=== PATIENT | male | born 1960 | race Caucasian/White ===

== ENCOUNTER 2019-10-11 08:28 | Inpatient (IN) | payer MEDICAID ==
[~2019-10-11 08:28] MED LIST: Doxycycline 200 MG in Sodium Chloride 0.9% 250 ML IV ONE; Ketamine 50 MG in Sodium Chloride 0.9% 49.5 ML IV SCH; Ketamine 500 MG/5 ML MDV IV SCH
[2019-10-11] MEDS ORDERED: Gabapentin 300 MG Cap PO ONE (08:45)
[2019-10-11] MEDS ORDERED: Acetaminophen 500 MG Tab PO ONE (08:45)
[2019-10-11] MEDS ORDERED: Celecoxib 200 MG Cap PO ONE (08:45)
[2019-10-11] MEDS ORDERED: Scopolamine 1.5 MG Transdermal Patch TRDERM SCH (09:00)
[2019-10-11] MEDS ORDERED: Dextrose 5%-Lactated Ringers 1,000 ML IV SCH (09:45)
[2019-10-11] MEDS ORDERED: Rocuronium 50 MG/5 ML Vial ONE (10:00)
[2019-10-11] MEDS ORDERED: Ondansetron 4 MG/2 ML SDV ONE (10:00)
[2019-10-11] MEDS ORDERED: Dexamethasone 4 MG/ML SDV ONE (10:00)
[2019-10-11] MEDS ORDERED: Succinylcholine 200 MG/10 ML MDV ONE (10:00)
[2019-10-11] MEDS ORDERED: Neostigmine Methylsulfate 1 MG/ML 5 ML Syringe ONE (10:00)
[2019-10-11] MEDS ORDERED: Glycopyrrolate 0.2 MG/ML 5 ML MDV ONE (10:00)
[2019-10-11] MEDS ORDERED: Propofol 200 MG/20 ML SDV ONE (10:00)
[2019-10-11] MEDS ORDERED: fentaNYL 250 MCG/5 ML SDV ONE ×2 (10:00→11:16)
[2019-10-11] MEDS ORDERED: Lactated Ringers 1,000 ML ONE (10:08)
[2019-10-11] MEDS ORDERED: Doxycycline 100 MG Vial ONE (10:49)
[2019-10-11] MEDS ORDERED: Meropenem 500 MG SDV ONE (12:12)
[2019-10-11] MEDS ORDERED: hydrOXYzine HCL 100 MG/2 ML SDV IM ONE (13:28)
[2019-10-11] MEDS ORDERED: fentaNYL 100 MCG/2 ML SDV IVPUSH ONE (13:47)
[2019-10-11] MEDS: Meropenem 500 MG in Sodium Chloride 0.9% 50 ML IV SCH ×2 (14:26→20:09)
[2019-10-11] MEDS ORDERED: Calcium Gluconate 10% 1 GM/10 ML SDV IVPUSH PRN (14:32)
[2019-10-11] MEDS ORDERED: Labetalol 20 MG/4 ML Syringe IVPUSH PRN (14:32)
[2019-10-11] MEDS ORDERED: Metoclopramide 10 MG/2 ML SDV IVPUSH PRN (14:32)
[2019-10-11] MEDS ORDERED: HYDROmorphone 1 MG/ML Syringe IV PRN (14:32)
[2019-10-11] MEDS ORDERED: diphenhydrAMINE 50 MG/ML SDV IVPUSH PRN (14:32)
[2019-10-11] MEDS ORDERED: hydrOXYzine HCL 100 MG/2 ML SDV IM PRN (14:32)
[2019-10-11] MEDS ORDERED: Ondansetron 4 MG/2 ML SDV IVPUSH PRN (14:32)
[2019-10-11] MEDS ORDERED: Acetaminophen 500 MG Tab PO PRN (14:32)
[2019-10-11] MEDS ORDERED: HYDROmorphone 0.5 MG/0.5 ML Syringe IVPUSH PRN (14:32)
[2019-10-11] MEDS ORDERED: Cyclobenzaprine 10 MG Tab PO PRN (14:32)
[2019-10-11] MEDS: MVI, Adult with Vitamin K 10 ML, Thiamine 200 MG, Chromium/Copper/Mang/Selen/Zn 1 ML in... IV SCH ×4 (15:50)
[2019-10-11] MEDS: Dextrose 5%-Lactated Ringers 1,000 ML IV SCH ×2 (15:51→22:11)
[2019-10-11] MEDS: Acetaminophen 500 MG Tab PO SCH (15:54)
[2019-10-11] MEDS ORDERED: Pantoprazole 40 MG Vial IVPUSH SCH (16:00)
[2019-10-11] MEDS: oxyCODONE 5 MG Tab PO PRN (20:13)
[2019-10-11] MEDS: Sotalol 80 MG Tab PO SCH (20:37)
[2019-10-11] MEDS: Mirtazapine 15 MG Tab PO SCH (20:39)
[2019-10-11] MEDS: Gabapentin 250 MG/5 ML Solution ML 470 ML Bottle PO SCH (20:44)
[2019-10-11] MEDS: Rivaroxaban 10 MG Tab PO SCH (22:12)
[2019-10-12] MEDS: Acetaminophen 500 MG Tab PO SCH ×3 (00:37→16:24)
[2019-10-12] MEDS: Meropenem 500 MG in Sodium Chloride 0.9% 50 ML IV SCH ×4 (02:36→20:30)
[2019-10-12] MEDS: oxyCODONE 5 MG Tab PO PRN (02:36)
[2019-10-12] MEDS ORDERED: Iopamidol 612 MG/ML 50 ML SDV PO STA (03:50)
[2019-10-12] MEDS: Dextrose 5%-Lactated Ringers 1,000 ML IV SCH (04:27)
--- NOTE | 2019-10-12 05:59 | CRLCR ---
INDICATION: Follow-up Jose David-en-Y gastric bypass surgery. COMPARISON: None available. FINDINGS: Four films of the abdomen are obtained after administration of oral contrast. The initial film demonstrates passage of contrast from the esophagus into the small gastric remnant, with prompt flow into the jejunum. Subsequent images demonstrate prompt passage of the oral contrast into the jejunum, clearing the gastric remnant. There is no sign of extravasation of contrast from the bowel. A Munir-Blunt drain is seen in the upper abdomen both to the left and right of midline. Leads from a pacemaker are seen terminating in the right atrium and right ventricle. The loops of small bowel and colon are nondistended. IMPRESSION: Prompt passage of ingested oral contrast from the gastric remnant into the nondistended jejunum. No sign of extravasation of contrast from the bowel. Dictated by Randolph Weiss MD @ Oct 12 2019 5:54AM Signed by Dr. Randolph Weiss @ Oct 12 2019 5:56AM
[2019-10-12] MEDS ORDERED: Ondansetron 4 MG Tab.DIS PO PRN (07:39)
[2019-10-12] MEDS ORDERED: hydrOXYzine HCl 25 MG Tab PO PRN (07:41)
[2019-10-12] MEDS ORDERED: Dextrose 5%-Lactated Ringers 1,000 ML IV SCH (07:45)
[2019-10-12] MEDS: Sotalol 80 MG Tab PO SCH ×2 (08:14→20:29)
[2019-10-12] MEDS: Celecoxib 200 MG Cap PO SCH ×2 (08:16→20:53)
[2019-10-12] MEDS: amLODIPine 10 MG Tab PO SCH (08:16)
[2019-10-12] MEDS: PARoxetine 20 MG Tab PO SCH (08:17)
[2019-10-12] MEDS: Lisinopril 20 MG Tab PO SCH (08:18)
[2019-10-12] MEDS: SCOPOLAMINE PATCH CHECK TOP SCH (08:25)
[2019-10-12] MEDS: Gabapentin 250 MG/5 ML Solution ML 470 ML Bottle PO SCH ×3 (08:25→20:30)
--- NOTE | 2019-10-12 11:48 | PN ---
DATE OF SERVICE: 10/12/2019 SUBJECTIVE: Twan is postoperative day #1. His upper GI was normal. Vital signs have been stable. Oral intake 630. Urine output 875. He has 2 CHARLEY drains that drained a light pink drainage of 45 and 115. OBJECTIVE: HEENT: Negative. NECK: Supple. HEART: Regular rate and rhythm, LUNGS: Clear. ABDOMEN: Dressings dry and intact. CHARLEY drains as above. Abdominal binder is on. EXTREMITIES: Without peripheral edema. ASSESSMENT: 1. Laparoscopic Jose David-en-Y gastric bypass surgery, liver biopsy, repair of diaphragmatic hernia, excision of mediastinal lipoma, and partial gastrectomy for morbid obesity, hepatomegaly, diaphragmatic hernia, mediastinal lipoma nodule over mid lesser curvature of the stomach. 2. Date of surgery: 10/11/2019. Surgeon: Mika Zepeda MD. PLAN: 1. Step 2 gastric bypass diet with no cereal. 2. Decrease IV to 100 mL per hour. 3. Communication Order: 3 med cups per hour or 1 every 20 minutes, record at bedtime. 4. Zofran ODT 4 mg every 4 hours p.r.n. nausea. 5. Atarax 25 mg every 4 hours p.r.n. pain. 6. Avoid narcotics due to energy protocol. 7. Good pulmonary toilet. 8. We will evaluate p.r.n. or in a.m. 9. Dressing off and may shower. Violette Spencer PA-C /[id number]
[2019-10-12] MEDS: MVI, Adult with Vitamin K 10 ML, Thiamine 200 MG, Chromium/Copper/Mang/Selen/Zn 1 ML in... IV SCH ×4 (16:22)
[2019-10-12] MEDS: Rivaroxaban 10 MG Tab PO SCH (16:25)
[2019-10-12] MEDS ORDERED: Pantoprazole 40 MG Delayed-Release Granules 1 Packet PO SCH (16:30)
[2019-10-12] MEDS: Mirtazapine 15 MG Tab PO SCH (20:30)
[2019-10-13] MEDS: Acetaminophen 500 MG Tab PO SCH ×2 (00:07→09:04)
[2019-10-13] MEDS: Meropenem 500 MG in Sodium Chloride 0.9% 50 ML IV SCH (02:05)
[2019-10-13] MEDS ORDERED: Cyanocobalamin (Vitamin B12) 1,000 MCG/ML SDV IM ONE (09:00)
[2019-10-13] MEDS: Gabapentin 250 MG/5 ML Solution ML 470 ML Bottle PO SCH ×2 (09:05→13:40)
[2019-10-13] MEDS: Celecoxib 200 MG Cap PO SCH (09:05)
[2019-10-13] MEDS: Sotalol 80 MG Tab PO SCH (09:05)
[2019-10-13] MEDS: SCOPOLAMINE PATCH CHECK TOP SCH (09:06)
[2019-10-13] MEDS: amLODIPine 10 MG Tab PO SCH (09:06)
[2019-10-13] MEDS: PARoxetine 20 MG Tab PO SCH (09:06)
[2019-10-13] MEDS: Lisinopril 20 MG Tab PO SCH (09:08)
[2019-10-13] MEDS ORDERED: Magnesium Hydroxide 400 MG/5 ML Susp 30 ML Cup PO ONE (12:49)
--- NOTE | 2019-10-15 09:08 | DISCH ---
FINAL DIAGNOSES: 1. Morbid obesity. 2. Marked hepatomegaly. 3. Diaphragmatic hernia associated with mediastinal lipoma. 4. Nodular lesion over mid lesser curvature of the stomach. 5. History of atrial fibrillation. 6. Obstructive sleep apnea, on CPAP. 7. History of hypertension. 8. History of anxiety and depression. 9. History of transient ischemic attack. 10.History of pacemaker placement. OPERATIVE PROCEDURE: This was done on . Diagnostic laparoscopy with: 1. Laparoscopic Jose David-en-Y gastric bypass with long limb gastroenterostomy. 2. Orville-Cut needle liver biopsy. 3. Repair of paraesophageal diaphragmatic hernia with excision of mediastinal lipoma. 4. Partial gastrectomy to remove nodular lesion on lesser curvature of the stomach. SUMMARY: This is a 59-year-old male presenting with longstanding morbid obesity and increasingly significant comorbidities. After preoperative evaluation and discussion, he wished to proceed with gastric bypass procedure. This was done on the date of admission with the above procedures also being undertaken. The patient had no significant problems postoperatively and will be discharged home on postop day #2. He was instructed to continue the step 2 diet until the first appointment. His medication list is reviewed. He was started back on Xarelto the night of surgery. Followup will be with Violette Spencer PA-C, [facility] on 10/22/2019.
--- NOTE | 2019-10-15 11:20 | OR ---
DATE OF PROCEDURE: 10/11/2019 SURGEON: Mika Zepeda MD PREOPERATIVE DIAGNOSIS: Morbid obesity. POSTOPERATIVE DIAGNOSES: 1. Morbid obesity. 2. Marked hepatomegaly. 3. Paraesophageal diaphragmatic hernia. 4. Mediastinal lipoma. 5. Nodule overlying lesser curvature of the stomach. 6. Fat-laden small bowel mesentery requiring small bowel resection to allow adequate mobility of the jejunojejunostomy. OPERATIVE PROCEDURES: Diagnostic laparoscopy with, 1. Laparoscopic Jose David-en-Y gastric bypass with long-limb gastroenterostomy (42249). 2. Orville-Cut needle liver biopsy (83546). 3. Repair of paraesophageal diaphragmatic hernia (43034). 4. Excision of mediastinal lipoma (39302). 5. Partial gastrectomy for removal of a nodule over lesser curvature of stomach (59452). 6. Small bowel resection (05298). ANESTHESIA: General. WORKERS COMPENSATION EXAMINER: Violette Spencer PA-C. INDICATIONS FOR PROCEDURE: This is a 59-year-old male presenting with longstanding morbid obesity and increasingly significant comorbidities. After preoperative evaluation and discussion, he wished to proceed with a gastric bypass procedure. Potential risks of the procedure including bleeding, infection, leaks from various GI tract closures, possible bowel obstruction over time, as well as the possibility of cardiopulmonary, septic, or hemorrhagic complications leading to were all discussed, and the patient wishes to proceed. DETAILS OF PROCEDURE: The patient was taken to the operating room and placed in a supine position. After general endotracheal anesthesia was induced, he was converted to a lithotomy position, and the abdomen was prepped and draped. At 15 cm inferior and 5 cm left of the xiphoid process, a transverse incision was made and the peritoneal cavity entered under direct vision with an Optiview trocar and inflated to 15 mmHg pressure with CO2. Laparoscope was then reinserted and no underlying trocar insertion site injuries were seen. Bilateral transversus abdominis plane blocks were then placed, and 5 additional trocars were placed across the upper and mid-abdomen. Initial inspection showed marked hepatomegaly with the liver being grossly fatty infiltrated, roughly 2 to 3 times normal size. Orville-Cut biopsies were obtained from the left lobe of liver. Minimal bleeding from the biopsy site was controlled with electrocautery. At this point, the omentum was divided in the midline up to the level of the transverse colon. This allowed identification of small bowel at the ligament of Treitz. Small bowel was then traced out 100 cm distal to that point and was divided transversely with the AICHA stapler. The small bowel was then traced out additional 200 cm. At that point, it was noted that the small bowel mesentery was very fat-laden and quite immobile, and to facilitate adequate mobilization of the Jose David limb up to the level of the gastric pouch, a roughly 10 cm section of the biliopancreatic limb side of the small bowel was excised with mesentery being divided with the harmonic scalpel and the small bowel divided with additional AICHA staple firing. Small bowel specimen was then delivered from the field. At that point, the cjoe-es-svyz enteroenterostomy was accomplished with internal firing of the Endo-AICHA 60-mm stapler. Common opening was then closed transversely with the same stapler, and the angles anastomosed and mesenteric defect approximated with some 0 Ethibond stitch, along with fibrin sealant. The divided end of the Jose David limb was then from the mesentery for a few centimeters, which allowed an antecolic positioning of the Jose David limb up to the level of the gastroesophageal junction without tension. The liver was then retracted anteriorly. The patient was noted to have a small nodule roughly around 3 to 4 mm on the surface of the stomach. This was more or less in the mid and lesser curvature. A partial gastrectomy was then accomplished with a AICHA purple load, removing the nodule, along with a small rim of stomach. Upon resection of the esophagogastric junction, the patient was noted to have a moderate- sized paraesophageal diaphragmatic hernia containing some omentum, as well as perigastric fat and a portion of gastric fundus. This was reduced and the peritoneum overlying incised and reflected downward. During the course of the dissection, mediastinal lipoma was encountered, and this was excised as well and sent for histologic evaluation. Diaphragmatic hernia was then repaired with a series of 0 Ethibond sutures reinforced with PTFE pledgets. Gastrointestinal balloon catheter was then inflated to 15 mL and pulled up snugly against the EG junction. Gastric wall over the apex of balloon was then marked with electrocautery and balloon catheter deflated and withdrawn. The lesser omental tissue adjacent to the gastric cardia was then incised, allowing dissection behind the stomach at that level, and pouch formation was initiated with a transverse firing of the AICHA stapler at the level of the cauterized willy in the gastric cardia. The pouch was then completed with additional AICHA staple firings up to and through the angle of His. Upon completion of the pouch, both staple lines appeared to be intact. The anvil of a 25-mm EEA stapler was attached to Winfield sump type tube. The latter was brought down through the mouth and taken out a small opening in the gastric pouch, allowing the anvil likewise to be pulled down to within the gastric pouch. The main body of the EEA stapler was then passed into the now-open end of the Jose David limb and brought up the anvil and united with it, thus creating the gastrojejunostomy. Upon removal of the stapler, double donuts of mucosa were noted within it. The small bowel was closed off with a vascular staple line. Gastrojejunostomy was reinforced with some 3-0 Vicryl seromuscular stitch, along with fibrin sealant. A leak test was accomplished with injection of 120 mL of air in the gastric pouch, while it was submerged with cefoxitin-containing saline solution. No leaks were identified. The patient is on Xarelto and, throughout the procedure, has had somewhat more than average tendency to bleed. Given this, two Munir-Blunt drains were placed, one in the left subcostal and one in the right upper abdominal trocar sites, both positioned adjacent to the gastrojejunostomy with the left one being passed up into the splenic fossa as well. At that point, no further problems were noted. Trocars were removed, and the peritoneal cavity deflated. Incisions were closed with some 4-0 Vicryl skin stitch and dressing was applied. The patient was taken to the recovery room in satisfactory condition. There were no evident complications. Physician staffing assistant, Violette Spencer, played an essential role in assisting in this case, helping to position the patient, retract structures as needed, as well as suturing and cutting sutures when indicated. Her presence improved patient safety and decreased the operative time. Mika Zepeda MD /[id number]
== END 2019-10-13 15:47 | disposition home or self-care (01) | DRG 621 ==
LOC: JP.SDSSCHI 08:28 → JP.SDS 08:28 → EDSTATUS 10:45 → JP.MS 13:20
PROVIDERS: ADMIT Surgery; ATTEND Surgery
PROC: 0D160ZA Bypass Stomach to Jejunum, Open Approach (ICD-10-PCS; principal; 2019-10-11)
PROC: 0FB20ZX Excision of Left Lobe Liver, Open Approach, Diagnostic (ICD-10-PCS; 2019-10-11)
PROC: 0JB60ZZ Excision of Chest Subcutaneous Tissue and Fascia, Open Approach (ICD-10-PCS; 2019-10-11)
PROC: 0DB60ZZ Excision of Stomach, Open Approach (ICD-10-PCS; 2019-10-11)
PROC: 0DB80ZZ Excision of Small Intestine, Open Approach (ICD-10-PCS; 2019-10-11)
DX: E66.01 Morbid (severe) obesity due to excess calories (principal); K44.9 Diaphragmatic hernia without obstruction or gangrene; D17.4 Benign lipomatous neoplasm of intrathoracic organs; K76.0 Fatty (change of) liver, not elsewhere classified; F32.9 Major depressive disorder, single episode, unspecified; F41.9 Anxiety disorder, unspecified; G47.33 Obstructive sleep apnea (adult) (pediatric); I48.91 Unspecified atrial fibrillation; I10 Essential (primary) hypertension; Z90.49 Acquired absence of other specified parts of digestive tract; Z95.0 Presence of cardiac pacemaker; Z87.891 Personal history of nicotine dependence; Z88.1 Allergy status to other antibiotic agents; Z86.73 Personal history of transient ischemic attack (TIA), and cerebral infarction without residual deficits; Z68.41 Body mass index [BMI] 40.0-44.9, adult
CPT/HCPCS: 36415; 74240; 80053; 82962; 83735; 83880; 84100; 85025; 86850; 86900; 86901; 88304; 88305; 88307; 88313; 93005; 94762; A9270-GY; C9113; J0171; J0330; J1100; J2185; J2405; J2704; J2710; J2795; J3010; J3410; J3411; J3420; J3475; J3490; J7050; J7120; J7121; Q9967

== ENCOUNTER → 2019-11-13 | Day surgery (SDC) | payer MEDICAID ==
[~2019-11-13] MED LIST changes: +Cyanocobalamin (Vitamin B12) 1,000 MCG/ML SDV IM ONE; -Doxycycline 200 MG in Sodium Chloride 0.9% 250 ML IV ONE; +Glycopyrrolate 0.2 MG/ML 2 ML SDV IVPUSH ONE; -Ketamine 50 MG in Sodium Chloride 0.9% 49.5 ML IV SCH; -Ketamine 500 MG/5 ML MDV IV SCH; +Lactated Ringers 1,000 ML IV ONE; +MVI, Adult with Vitamin K 10 ML, Thiamine 200 MG, Chromium/Copper/Mang/Selen/Zn 1 ML in... IV ONE; +Midazolam 1 MG/ML 2 ML SDV ONE; +Propofol 200 MG/20 ML SDV ONE; +fentaNYL 100 MCG/2 ML SDV ONE
--- NOTE | 2019-11-14 14:53 | OR ---
DATE OF PROCEDURE: 11/13/2019 SURGEON: Mika Zepeda MD PREOPERATIVE DIAGNOSIS: Stricture at gastrojejunostomy. POSTOPERATIVE DIAGNOSIS: Moderately tight stricture at gastrojejunostomy. OPERATIVE PROCEDURE: Upper GI endoscopy with dilation of gastrojejunostomy (23621). ANESTHESIA: IV sedation. INDICATIONS FOR PROCEDURE: The patient is status post a Jose David-en-Y gastric bypass on 10/11/2019, and presents with some persistent and increasing dysphagia referable to the area of the gastrojejunostomy. Plan is to proceed with upper GI endoscopy with dilation as indicated. Potential risks including bleeding and perforation were discussed, and the patient wishes to proceed. DETAILS OF PROCEDURE: The patient was taken to the operating room and placed in a left lateral decubitus position. IV sedation was administered, after which the upper GI endoscope was passed orally through the length of the esophagus into the gastric pouch. The patient was noted to have a fairly tight stricture at the gastrojejunostomy. Bard gastrointestinal catheter was then centered across the anastomosis using fluoroscopic surveillance and inflated to 36-Uzbek size and held this in position for 1 minute after which the balloon catheter was deflated and withdrawn. Scope easily passed through the anastomosis. No complications were evident. The patient was taken to the recovery room in satisfactory condition. Mika Zepeda MD /[id number]
== END ==
LOC: JP.SDS 06:02
PROVIDERS: ATTEND Surgery
DX: K94.23 Gastrostomy malfunction (principal); I10 Essential (primary) hypertension; E66.9 Obesity, unspecified; Z98.84 Bariatric surgery status; Z88.8 Allergy status to other drugs, medicaments and biological substances; Z68.41 Body mass index [BMI] 40.0-44.9, adult
CPT/HCPCS: 43245; 76000; J2250; J2704; J3010; J3411; J3420; J3490; J7120